=== PATIENT | female | born 1960 | race Caucasian/White ===

== ENCOUNTER 2018-04-15 05:58 | Day surgery (SDC) | payer BC ==
[2018-04-15] MEDS ORDERED: FENTAnyl 50 MCG/ML VIAL (07:59)
[2018-04-15] MEDS ORDERED: MIDAZOLAM 1 MG/ML 2 ML INJ ×2 (07:59→08:00)
== END 2018-04-15 11:42 | disposition home or self-care (01) ==
LOC: GIL 05:58
DX: K29.30 Chronic superficial gastritis without bleeding (principal); K44.9 Diaphragmatic hernia without obstruction or gangrene; K21.9 Gastro-esophageal reflux disease without esophagitis
CPT/HCPCS: 43239; 88305; 88312; 88313

== ENCOUNTER 2018-04-24 17:20 | Emergency (ER) | payer BC ==
[2018-04-24] MEDS: ACETAMINOPHEN 325 MG TAB PO (19:29)
== END 2018-04-24 19:35 | disposition home or self-care (01) ==
LOC: FTE 17:20
DX: H10.9 Unspecified conjunctivitis (principal)
CPT/HCPCS: 99283; Z7502

== ENCOUNTER 2018-05-27 06:11 | Day surgery (SDC) | payer BC ==
[2018-05-27] MEDS ORDERED: MIDAZOLAM 1 MG/ML 2 ML INJ ×2 (08:47→08:48)
[2018-05-27] MEDS ORDERED: FENTAnyl 50 MCG/ML VIAL (08:48)
== END 2018-05-27 10:42 | disposition home or self-care (01) ==
LOC: GIL 06:11
DX: Z12.11 Encounter for screening for malignant neoplasm of colon (principal); K64.8 Other hemorrhoids
CPT/HCPCS: 45378

== ENCOUNTER 2018-08-14 21:23 | Emergency (ER) | payer BC ==
[2018-08-15] MEDS: METOCLOPRAMIDE 10 MG INJ IV (00:11)
[2018-08-15] MEDS: DIPHENHYDRAMINE 50 MG INJ IV (00:11)
[2018-08-15] MEDS: SOD CHLORIDE 0.9% 1,000 ML IV (00:11)
[2018-08-15 00:41] LABS: ADD UMIC YES; UR ASCORBIC ACID NEGATIVE (NEGATIVE); UR BILIRUBIN (Dip) NEGATIVE (NEGATIVE); UR BLOOD (Dip) 2+ mg/dL (NEGATIVE); UR CLARITY CLEAR (CLEAR); UR COLOR STRAW (YELLOW); UR GLUCOSE (Dip) NEGATIVE (NEGATIVE); UR KETONES (Dip) NEGATIVE (NEGATIVE); UR LEUKOCYTE ESTERASE (Dip) TRACE Leu/ul (NEGATIVE); UR NITRITE (Dip) NEGATIVE (NEGATIVE); UR RBC 1 /HPF (0-5); UR SPECIFIC GRAVITY (Dip) 1.006 (1.003-1.030); UR SQUAMOUS EPITHELIAL CELL FEW /HPF (FEW); UR TOTAL PROTEIN (Dip) NEGATIVE (NEGATIVE); UR UROBILINOGEN (Dip) NEGATIVE (NEGATIVE); UR WBC 3 /HPF (0-5)
== END 2018-08-15 02:13 | disposition home or self-care (01) ==
LOC: FTE 21:23
DX: B34.9 Viral infection, unspecified (principal); F17.210 Nicotine dependence, cigarettes, uncomplicated
CPT/HCPCS: 81001; 87086; 93005; 96374; 96375; 99284-25